=== PATIENT | female | born 1965 ===

== ENCOUNTER 2018-10-10 13:58 | Emergency (ER) | payer MEDICAID ==
--- NOTE | 2018-10-10 14:41 | ED PDOC ---
HPI: Abdomen Time Seen by Provider: 10/10/18 14:25 Chief Complaint (Nursing): GI Problem Chief Complaint (Provider): GI Problem History Per: Patient History/Exam Limitations: no limitations Onset/Duration Of Symptoms: Days (x1) Current Symptoms Are (Timing): Still Present Additional Complaint(s): 53 year old female with SHx of multiple abdominal surgeries, present to ED with a complaint of constant, right-sided abdominal pain that radiates to right pelvis since 0200 this morning. She reports associated headache, vomiting, chills, nausea, and general weakness after ingesting swordfish for dinner last night. Patient denies fever, diarrhea, or bloody stool and has taken Prilosec with minimal alleviation. PCP: none provided Past Medical History Reviewed: Historical Data, Nursing Documentation, Vital Signs Vital Signs: Last Vital Signs Temp 98.8 F 10/10/18 14:16 Pulse 93 H 10/10/18 14:16 Resp 16 10/10/18 14:16 BP 135/82 10/10/18 14:16 Pulse Ox 98 10/10/18 14:16 - Medical History PMH: Anxiety, Arthritis, Depression Denies: Chronic Kidney Disease - Surgical History Surgical History: Appendectomy, Cholecystectomy Other surgeries: hysterectomy - Family History Family History: States: No Known Family Hx - Social History Current smoker - smoking cessation education provided: No Alcohol: None Drugs: Denies - Home Medications Home Medications: Ambulatory Orders Medication Instructions Recorded Ergocalciferol (Vitamin D2) 50,000 unit PO SUN 10/30/16 [Vitamin D2] FLUoxetine [Prozac] 10 mg PO DAILY 10/30/16 Hydroxyzine HCl 25 mg PO HS 10/30/16 Aspirin [Aspirin Chewable] 81 mg PO DAILY #30 chew 11/01/16 Simvastatin 20 mg PO DAILY #30 tablet 11/01/16 Ondansetron ODT [Zofran ODT] 4 mg PO Q8 PRN #12 odt 10/10/18 - Allergies Allergies/Adverse Reactions: Allergies Allergy/AdvReac Type Severity Reaction Status Date / Time No Known Allergies Allergy Verified 10/30/16 12:54 Review of Systems ROS Statement: Except As Marked, All Systems Reviewed And Found Negative Constitutional: Positive for: Chills, Weakness. Negative for: Fever Gastrointestinal: Positive for: Nausea, Vomiting, Abdominal Pain (right-sided). Negative for: Diarrhea, Melena Genitourinary Female: Positive for: Pelvic Pain (right-sided) Neurological: Positive for: Headache Physical Exam - Reviewed Nursing Documentation Reviewed: Yes Vital Signs Reviewed: Yes - Physical Exam Appears: Positive for: Uncomfortable Head Exam: Positive for: ATRAUMATIC, NORMAL INSPECTION, NORMOCEPHALIC Skin: Positive for: Normal Color Eye Exam: Positive for: Normal appearance ENT: Positive for: Normal ENT Inspection. Negative for: Pharyngeal Erythema, Tonsillar Swelling Neck: Positive for: Normal, Supple Cardiovascular/Chest: Positive for: Regular Rate, Rhythm Respiratory: Positive for: Normal Breath Sounds. Negative for: Respiratory Distress Gastrointestinal/Abdominal: Positive for: Soft, Tenderness (RLQ > RUQ). Negative for: Guarding, Rebound Back: Positive for: Normal Inspection. Negative for: L CVA Tenderness, R CVA Tenderness Extremity: Positive for: Normal ROM (upper/lower) Neurologic/Psych: Positive for: Alert, Oriented (x3). Negative for: Motor /Sensory Deficits - Laboratory Results Result Diagrams: 10/10/18 15:00 10/10/18 15:00 Urine POC: Negative - ECG ECG: Positive for: Interpreted By Ct ECG Rhythm: Positive for: Normal QRS, Normal ST Segment, Sinus Rhythm Rate: 90 O2 Sat by Pulse Oximetry: 98 (RA) Pulse Ox Interpretation: Normal - Progress Re-evaluation Time: 22:38 Condition: Re-examined, Improved Medical Decision Making Medical Decision Making: Initial Impression: Abdominal pain Differential Diagnosis: acute pancreatitis, gastritits, enteritis. less likely, biliary disease secondary to multiple abdominal surgeries. Initial Plan: * CT ABD/pevis * EKG * IV fluids * Labs * Omnipaque 240 50ml PO * Pepcid 20mg IVP * Toradol 15mg IVP * Zofran 4mg IVP Time: 1832 --CT ABD/pelvis FINDINGS: LUNG BASES: The lung bases appear clear. No pleural effusions are seen. LIVER: There is a well-demarcated predominantly low density mass with increased vascularity at the central portion which measures 2.8 x 3.4 cm within the posterior aspect right lobe of the liver. This does not appear to be a typical hemangioma. GALLBLADDER AND BILE DUCTS: Gallbladder has been surgically removed. PANCREAS: Unremarkable. SPLEEN: Unremarkable. ADRENAL GLANDS: Unremarkable. KIDNEYS, URETERS, AND BLADDER: Incidental small right renal cyst present. There is no hydronephrosis or hydroureter. No urinary calculi are seen. STOMACH AND BOWEL: Unremarkable appearance of the stomach and bowel. No evidence of bowel obstruction. No evidence suggesting enteritis or colitis. APPENDIX: No evidence of acute appendicitis on CT examination. PERITONEUM: No free fluid. No free air. LYMPH NODES: No lymphadenopathy is evident. REPRODUCTIVE: Unremarkable as visualized. VASCULATURE: No evidence of abdominal aortic aneurysm. BONES: No aggressive appearing osseous lesion. No acute osseous pathology evident. IMPRESSION: Approximate at 2.8 x 3.4 cm well-demarcated mass with increased vascularity within the posterior aspect right lobe of the liver. Status post cholecystectomy. Clinical correlation and correlation with ultrasound examination of the liver is recommended. Time: 2139 --Influenza: (-). -- Scribe Attestation: Documented by Brianne Sanderson, acting as a scribe for Melanie Nagel MD. Provider Scribe Attestation: All medical record entries made by the Scribe were at my direction and personally dictated by me. I have reviewed the chart and agree that the record accurately reflects my personal performance of the history, physical exam, medical decision making, and the department course for this patient. I have also personally directed, reviewed, and agree with the discharge instructions and disposition. Disposition - Clinical Impression Clinical Impression: Abdominal pain, Flu-like symptoms - Patient ED Disposition Is Patient to be Admitted: No Doctor Will See Patient In The: Office Counseled Patient/Family Regarding: Studies Performed, Diagnosis, Need For Followup - Disposition Referrals: Buddy Ortiz MD, PhD [Staff Provider] - Disposition: Routine/Home Disposition Time: 22:39 Condition: IMPROVED Additional Instructions: TAVON TIPTON, thank you for letting us take care of you today. Your provider was Melanie Nagel MD and you were treated for VOMITTING, HEADACHE. The emerge ncy medical care you received today was directed at your acute symptoms. If you were prescribed any medication, please fill it and take as directed. It may take several days for your symptoms to resolve. Return to the Emergency Department if your symptoms worsen, do not improve, or if you have any other problems. Please contact your doctor or call one of the physicians/clinics you have been referred to that are listed on the Patient Visit Information form that is included in your discharge packet. Bring any paperwork you were given at discharge with you along with any medications you are taking to your follow up visit. Our treatment cannot replace ongoing medical care by a primary care prov ider outside of the emergency department. Thank you for allowing the [facility] team to be part of your care today. If you had an X-Ray or CT scan: A Radiologist will review the ED reading if any change in treatment is needed we will contact you. If you had a blood, urine, or wound culture: It will take several days for the results, if any change in treatment is needed we will contact you. If you had an STI test: It will take 48 hours for the results. Please call after 1 week if you have not heard back. Prescriptions: Ondansetron ODT [Zofran ODT] 4 mg PO Q8 PRN #12 odt PRN Reason: Nausea/Vomiting Instructions: Stomach Ache and Stomach Upset Forms: [employer] (Setswana)
[2018-10-10] MEDS ORDERED: Iohexol 240 (50 ml) PO ONE (14:57)
[2018-10-10] MEDS ORDERED: Sodium Chloride 0.9% 1,000 ML IV STA (15:00)
[2018-10-10 15:17] LABS: BASO % 0.3 % (0.0-2.0); EOS % 0.1 % (0.0-4.0); HEMOGLOBIN 14.4 g/dL (12.0-16.0); LYMPH # 0.4 K/uL (1.0-4.3); LYMPH % 4.8 % (20.0-40.0); MEAN CELL VOLUME 85.5 fl (81.0-99.0); MEAN CORPUSCULAR HEMOGLOBIN 29.1 pg (27.0-31.0); MEAN PLATELET VOLUME 8.8 fl (7.2-11.7); MONO # 0.3 K/uL (0.0-0.8); MONO % 3.4 % (0.0-10.0); NEUT # 7.9 K/uL (1.8-7.0); NEUT % 91.4 % (50.0-75.0); NRBC % 0.1 % (0.0-0.0); PLATELET COUNT 208 K/uL (130-400); RBC 4.97 Mil/uL (3.80-5.20); RED CELL DISTRIBUTION WIDTH 13.6 % (11.5-14.5); WHITE BLOOD COUNT 8.7 K/uL (4.8-10.8)
[2018-10-10] MEDS ORDERED: Iohexol 240 (50 ml) ONE (15:33)
[2018-10-10 15:40] LABS: ALB/GLOB RATIO 1.3 (1.0-2.1); ALBUMIN 4.8 g/dL (3.5-5.0); BLOOD UREA NITROGEN 20 mg/dl (7-17); CALCIUM 9.2 mg/dL (8.4-10.2); GFR NON-AFRICAN AMERICAN > 60; LIPASE 76 U/L (23-300)
[2018-10-10 15:44] LABS: ALT/SGPT 43 U/L (9-52); AST/SGOT 50 U/L (14-36)
[2018-10-10 16:31] LABS: LYMPHOCYTE 6 % (20-50); MONOCYTE 3 % (0-10); NEUTROPHIL 91 % (42-75); PLATELET ESTIMATE NORMAL (NORMAL); TOTAL CELLS COUNTED 100
[2018-10-10] MEDS ORDERED: Iohexol 300 100 ML IJ ONE (17:04)
[2018-10-10] MEDS ORDERED: Sodium Chloride 0.9% 100 ML ONE (17:04)
[2018-10-10 20:57] VITALS: RESP 18
[2018-10-10] MEDS ORDERED: Morphine 4 MG/ML VIAL IVP ONE (21:06)
[2018-10-10] MEDS ORDERED: Morphine 4 MG/ML VIAL ONE (21:09)
[2018-10-10 22:06] VITALS: BP 101/68; TEMP 99.9
[2018-10-10 22:40] VITALS: PULSE 90; O2SAT 98
[2018-10-10 23:10] LABS: SQUAMOUS EPITHIAL < 1 /hpf (0-5); URINE BACTERIA RARE (<OCC); URINE BILIRUBIN NEGATIVE (NEGATIVE); URINE BLOOD NEGATIVE (NEGATIVE); URINE CLARITY SLIGHTY-CLOUDY (Clear); URINE COLOR YELLOW (YELLOW); URINE GLUCOSE (UA) NEG (NEGATIVE); URINE LEUKOCYTE ESTERASE NEG Leu/uL (Negative); URINE PROTEIN NEGATIVE (NEGATIVE); URINE UROBILINOGEN 0.2-1.0 mg/dL (0.2-1.0)
--- NOTE | 2018-10-11 01:19 | CARD ---
APPROVED REPORT Date of service: 10/10/2018 EKG Measurement Heart [id number] <Conclusion> Normal sinus rhythm Normal ECG
--- NOTE | 2018-10-11 08:12 | CT ---
Date of service: 10/10/2018 PROCEDURE: CT Abdomen and Pelvis with contrast HISTORY: abdominal pain COMPARISON: In 12/10/2009 TECHNIQUE: Contrast dose: Radiation dose: Total exam DLP = 485.27 mGy-cm. This CT exam was performed using one or more of the following dose reduction techniques: Automated exposure control, adjustment of the mA and/or kV according to patient size, and/or use of iterative reconstruction technique. FINDINGS: LOWER THORAX: Unremarkable. LIVER: 3.6 centimeter well-defined mass with internal hyperdensity in the right hepatic lobe, new since prior examination. Findings concerning for malignancy. Recommend correlation with MRI with and without contrast. GALLBLADDER AND BILE DUCTS: Cholecystectomy. PANCREAS: Unremarkable. No gross lesion or ductal dilatation. SPLEEN: Unremarkable. ADRENALS: Unremarkable. No mass. KIDNEYS AND URETERS: 2 centimeter right upper pole renal cyst. No hydronephrosis. No solid mass. VASCULATURE: Unremarkable. No aortic aneurysm. No aortic atherosclerotic calcification or mural plaque present. BOWEL: Unremarkable. No obstruction. No gross mural thickening. APPENDIX: Normal appendix. PERITONEUM: Unremarkable. No free fluid. No free air. LYMPH NODES: Unremarkable. No enlarged lymph nodes. BLADDER: Unremarkable. REPRODUCTIVE: Unremarkable. BONES: No acute fracture. OTHER FINDINGS: None. IMPRESSION: 3.6 centimeter well-defined mass with internal hyperdensity in the right hepatic lobe, new since prior examination. Findings concerning for malignancy. Recommend correlation with MRI with and without contrast. Cholecystectomy.
== END 2018-10-10 23:18 | disposition home or self-care (01) ==
LOC: H.ER 13:58
DX: R10.9 Unspecified abdominal pain (principal); J11.1 Influenza due to unidentified influenza virus with other respiratory manifestations; Z79.899 Other long term (current) drug therapy
CPT/HCPCS: 74177; 80053; 81003; 81025; 83690; 85025; 87804; 93005; 96372; 96374; 96375; 99284; J1885; J2060; J2270; J2405; J7030; Q9966; Q9967